=== PATIENT | male | born 1955 | race Caucasian/White ===

== ENCOUNTER 2021-03-07 06:09 | Day surgery (SDC) | payer MEDICARE ==
[~2021-03-07] VITALS: Ht 180.3 cm; Wt 105.2 kg
[~2021-03-07 06:09] MED LIST: ALBU90OI INH; ALBU90OI6 INH; ASMANEX220 M14 INH; ASPI81CH PO; Aspir 8181 MG PO; B-100 COMPLEX100 MG PO; C COMPLEX1000 M1 PO; CALCIUM CARBON650 MG PO; CELE200 PO; CLOP75 PO; Co Q-1010 MG PO; Crestor20 MG PO; DEPO-TESTO200 MG/1 M IM; DULO60 PO; Depo-Testos200 MG/ML IM; ELIQUIS2.5 MG PO; ESCI10; EUTHYROX175 MCG PO; FAMO20 PO; Flonase 0.05% N16 GM; GABA600 PO; GEMF600; GLIM2 PO; GLUCOPHAGE1000 M1 PO; Gabapentin600 MG PO; IRBE150 PO; JARDIANCE10 MG PO; KAPSPARGO SPRIN50 MG PO; LEVFLO500; LEVOTHYROXINE SODIUM PO; LEVSOD150; LEVSOD88; Levitra20 MG; MAGNESIUM OXID500 MG PO; METF500C PO; METO100ER; METO50ER PO; MOME220I INH; MONT10T PO; MULTIPLE VITAM1 EACH PO; NEBI10 PO; NITR.4SL SL; NORT25 PO; OMEG1CAP30 PO; OMEGA-3 1,0501 EACH PO; PANT40; PANT40 PO; ROSU10TA; SULTRIDS; SYNTHROID; TAMS.4ER; TICA90TA PO; TRAZ50 PO; TRIA15CR3; TRULICITY0.75 MG/0. SC; TRULICITY1.5 MG/0.1 SC; Vitamin B-Comp1 EACH PO; WARF2.5 PO; WARF5
--- NOTE | 2021-03-07 07:48 | NUR ---
03/07/21 0748 Naz Jarvis 0730 SURGEON INJECTED IN PRE OP. 1MG VERSED GIVEN IVP. VSS.
== END 2021-03-07 08:19 | disposition home or self-care (01) ==
LOC: ORSCSDS 06:09
PROVIDERS: Orthopaedic Surgery
PROC: 0LN80ZZ Release Left Hand Tendon, Open Approach (ICD-10-PCS; principal; 2021-03-07 07:30)
DX: M65.30 Trigger finger, unspecified finger (principal); I25.10 Atherosclerotic heart disease of native coronary artery without angina pectoris; E11.9 Type 2 diabetes mellitus without complications; I10 Essential (primary) hypertension; E78.00 Pure hypercholesterolemia, unspecified; E03.9 Hypothyroidism, unspecified; G47.33 Obstructive sleep apnea (adult) (pediatric); Z79.82 Long term (current) use of aspirin; Z79.899 Other long term (current) drug therapy
CPT/HCPCS: 82947; J2250; J7120

== ENCOUNTER → 2021-05-25 | Outpatient (CLI) | payer MEDICARE | LOC: LAB 16:56 → LAB SHORT 16:56 | DX: L72.3 Sebaceous cyst (principal) | CPT/HCPCS: 87070; 87075; 87205 ==

== ENCOUNTER 2024-01-09 10:08 | Day surgery (SDC) | payer MEDICARE ==
[~2024-01-09] VITALS: Ht 180.3 cm; Wt 99.6 kg
[~2024-01-09 10:08] MED LIST changes: +Lactated Ringer's 1,000 ML IV ONE; +propofoL 50 ML IV ONE
[2024-01-09] MEDS ORDERED: OZEMPIC0.25 MG/02 (10:36)
[2024-01-09] MEDS ORDERED: GABA600 (10:37)
[2024-01-09] MEDS ORDERED: SILD25T (10:37)
[2024-01-09] MEDS ORDERED: Lactated Ringer's 1,000 ML IV ONE (10:51)
[2024-01-09 11:56] VITALS: BP 90/70
== END 2024-01-09 12:05 | disposition home or self-care (01) ==
LOC: ORSCSDS 10:08
PROVIDERS: Internal Medicine Gastroenterology
PROC: 0DBL8ZX Excision of Transverse Colon, Via Natural or Artificial Opening Endoscopic, Diagnostic (ICD-10-PCS; principal; 2024-01-09 11:15)
PROC: 0DBM8ZX Excision of Descending Colon, Via Natural or Artificial Opening Endoscopic, Diagnostic (ICD-10-PCS; principal; 2024-01-09 11:15)
DX: Z12.11 Encounter for screening for malignant neoplasm of colon (principal); Z86.010 Personal history of colon polyps; D12.3 Benign neoplasm of transverse colon; D12.4 Benign neoplasm of descending colon; K57.30 Diverticulosis of large intestine without perforation or abscess without bleeding; E11.9 Type 2 diabetes mellitus without complications; J45.909 Unspecified asthma, uncomplicated; G47.33 Obstructive sleep apnea (adult) (pediatric); Z79.01 Long term (current) use of anticoagulants; Z79.82 Long term (current) use of aspirin; Z79.899 Other long term (current) drug therapy
CPT/HCPCS: 82947; 88305; J2704; J7120